=== PATIENT | female | born 1970 | race Caucasian/White ===

== ENCOUNTER 2020-09-18 14:30 | Inpatient (IN) | payer BC ==
[~2020-09-18] VITALS: Ht 172.7 cm; Wt 70.0 kg
[2020-09-18 15:29] LABS: BASOPHILS % (AUTO) 0.3 % (0-1); EOSINOPHILS % (AUTO) 0.1 % (0-6); HEMATOCRIT 38.7 % (35.0-45.0); HEMOGLOBIN 12.9 g/dl (12.0-16.0); LYMPHOCYTES # (AUTO) 0.4 X10'3 (1.1-4.8); LYMPHOCYTES % (AUTO) 3.2 % (21-51); MEAN CORPUSCULAR HEMOGLOBIN 31.1 PG (27.0-31.0); MEAN CORPUSCULAR HGB CONC 33.2 g/dL (33.0-36.5); MEAN CORPUSCULAR VOLUME 93.6 FL (78-98); MEAN PLATELET VOLUME 9.2 FL (7.4-10.4); MONOCYTES # (AUTO) 0.8 X10'3 (0-0.9); MONOCYTES % (AUTO) 6.4 % (2-12); NEUTROPHILS # (AUTO) 10.9 X10'3 (1.8-7.7); PLATELET COUNT 146 X10'3 (140-440); RED BLOOD COUNT 4.13 X10'6 (4.20-5.60); RED CELL DISTRIBUTION WIDTH 13.6 % (11.5-14.5); WHITE BLOOD COUNT 12.1 X10'3 (4.5-11.0)
[2020-09-18 15:40] LABS: ALANINE AMINOTRANSFERASE 22 U/L (12-78); ALBUMIN 4.1 G/DL (3.4-5.0); ALBUMIN/GLOBULIN RATIO 1.1 (1.1-1.5); ALKALINE PHOSPHATASE 36 IU/L (46-116); AMYLASE 19 U/L (25-115); ANION GAP 9 (8-16); ASPARTATE AMINO TRANSFERASE 12 U/L (10-37); BILIRUBIN,TOTAL 1.6 MG/DL (0.1-1.0); BLOOD UREA NITROGEN 13 MG/DL (7-18); BUN/CREATININE RATIO 16.5 (6.6-38.0); CALCIUM 8.9 MG/DL (8.5-10.1); CHLORIDE 101 MMOL/L (99-107); CREATININE 0.79 MG/DL (0.40-0.90); GLUCOSE 96 MG/DL (70-104); LIPASE 53 U/L (73-393); POTASSIUM 3.7 MMOL/L (3.5-5.1); SODIUM 136 MMOL/L (135-145); TOTAL CARBON DIOXIDE 25.8 MMOL/L (24-32); eGFR 78 ML/MIN
[2020-09-18 17:30] LABS: URINE HCG NEGATIVE (NEG)
[2020-09-18 17:39] LABS: CLARITY,URINE SLIGHTLY CLOUDY (Clear); COLOR,URINE YELLOW (Yellow); GLUCOSE, URINE NEGATIVE (Neg); KETONES,URINE >=80 mg/dl (Neg); LEUKOCYTE ESTERASE ,URINE NEGATIVE (Neg); NITRITES, URINE NEGATIVE (Neg); OCCULT BLOOD,URINE SMALL (Neg); PH,URINE 5.5 (4.8-8.0); PROTEIN,URINE NEGATIVE (Neg)
[2020-09-18 17:53] LABS: UA COLLECTION TYPE CLN CATCH MIDSTREAM
[2020-09-18 18:00] LABS: BACTERIA,URINE FEW /HPF (Neg); MUCUS STRANDS MANY /LPF (Neg); RBC,URINE 0-2 /HPF (0-2); SQUAMOUS EPITHELIAL CELL,UR MANY /LPF (FEW); TRANSITIONAL EPI CELLS,URINE FEW /HPF; WBC,URINE 0-4 /HPF (0-4)
[2020-09-18] MEDS ORDERED: piperacillin/tazo 4.5gm/100ml 100 ML IV SCH (18:35)
[2020-09-18] MEDS ORDERED: piperacillin/tazo 4.5gm/100ml 100 ML IV ONE (18:38)
[2020-09-18] MEDS ORDERED: morphine 4 MG/ML inj SYRINge IV ONE (18:40)
[2020-09-18] MEDS ORDERED: dextrose 5%-normal saline 1,000 ML IV ONE (18:40)
[2020-09-18] MEDS ORDERED: ondansetron/PF 4mg/2ml inj IV ONE (18:40)
[2020-09-18] MEDS ORDERED: CITA20TA17 (19:01)
[2020-09-18] MEDS ORDERED: proCHLORperazine 10 MG/2 ml inj IV PRN (19:20)
[2020-09-18] MEDS ORDERED: morphine 2 MG/ML inj. syringe IV PRN (19:20)
[2020-09-18] MEDS ORDERED: morphine 4 MG/ML inj SYRINge IV PRN (19:20)
[2020-09-18] MEDS ORDERED: ondansetron/PF 4mg/2ml inj IV PRN (19:20)
[2020-09-18] MEDS ORDERED: ringers solution, lacted 1,000 ML IV SCH (19:20)
[2020-09-18] MEDS ORDERED: meperidine/PF 25mg/ml syringe IV PRN ×3 (19:20)
[2020-09-18] MEDS ORDERED: BUPIVAcaine/PF 2.5 mg/ml (0.25%) 30ml vial ONE (20:06)
[2020-09-18] MEDS ORDERED: magnesium hydroxide 30ml (MOM) UD suspension PO PRN (20:20)
[2020-09-18] MEDS ORDERED: potassium Cl 40MEQ/1/2NS 520ml 520 ML IV PRN ×2 (20:20)
[2020-09-18] MEDS ORDERED: HYDROcodone/acetaminophen 5mg/325mg tablet PO PRN (20:20)
[2020-09-18] MEDS ORDERED: potassium Cl 20 mEq SR tablet PO PRN ×2 (20:20)
[2020-09-18] MEDS ORDERED: mag hydrox/Alum hydrox/simeth 30ml oral suspension PO PRN (20:20)
[2020-09-18] MEDS: normal saline 1000ml 1,000 ML IV SCH ×2 (20:20→23:40)
[2020-09-18] MEDS ORDERED: magnesium 2GM in 50ml NS 50 ML IV PRN (20:20)
[2020-09-18] MEDS ORDERED: magnesium 4gm in 100ml NS 100 ML IV PRN (20:20)
[2020-09-18] MEDS ORDERED: magnesium Cl slow-release 64mg tablet PO PRN (20:20)
[2020-09-18] MEDS ORDERED: acetaminophen 325mg tablet PO PRN ×2 (20:20)
--- NOTE | 2020-09-18 20:43 | NUR ---
PATIENT TO OR WITH OR PERSONNEL.
[2020-09-18] MEDS ORDERED: temazepam 15mg capsule PO PRN (21:00)
[2020-09-18 21:08] LABS: PARTIAL THROMBOPLASTIN TIME 28 SECONDS (22-32)
--- NOTE | 2020-09-18 21:36 | NUR ---
I have received report from Betsy DONOHUE and had the opportunity to ask questions and assume patient care.
[2020-09-18 22:00] VITALS: BP 106/41
[2020-09-18] MEDS: piperacillin/tazo 3.375gm/50ml 50 ML IV SCH (23:30)
--- NOTE | 2020-09-18 23:30 | NUR ---
called pharmacy about midnight zosyn. pt came to floor with zosyn running and the bag of zosyn just finished. pharmacy said to nonadminister and give next dose ar scheduled time of 0800 on 09/19/20
[2020-09-19] VITALS (19 sets, daily range): BP systolic 92–124; BP diastolic 39–92
[2020-09-19] MEDS: HYDROmorphone inj. 0.5 MG/0.5 ML DISP.SYRIN IV PRN ×2 (04:49→23:16)
[2020-09-19 06:21] LABS: BASOPHILS % (AUTO) 0.1 % (0-1); EOSINOPHILS % (AUTO) 0.1 % (0-6); HEMATOCRIT 32.4 % (35.0-45.0); HEMOGLOBIN 11.2 g/dl (12.0-16.0); LYMPHOCYTES # (AUTO) 0.5 X10'3 (1.1-4.8); LYMPHOCYTES % (AUTO) 4.3 % (21-51); MEAN CORPUSCULAR HEMOGLOBIN 32.1 PG (27.0-31.0); MEAN CORPUSCULAR HGB CONC 34.5 g/dL (33.0-36.5); MEAN CORPUSCULAR VOLUME 93.1 FL (78-98); MEAN PLATELET VOLUME 9.6 FL (7.4-10.4); MONOCYTES # (AUTO) 0.9 X10'3 (0-0.9); MONOCYTES % (AUTO) 7.9 % (2-12); NEUTROPHILS # (AUTO) 10.4 X10'3 (1.8-7.7); NEUTROPHILS % (AUTO) 87.6 % (42-75); PLATELET COUNT 120 X10'3 (140-440); RED BLOOD COUNT 3.48 X10'6 (4.20-5.60); RED CELL DISTRIBUTION WIDTH 13.5 % (11.5-14.5); WHITE BLOOD COUNT 11.9 X10'3 (4.5-11.0)
[2020-09-19 06:32] LABS: PARTIAL THROMBOPLASTIN TIME 31 SECONDS (22-32)
[2020-09-19 06:38] LABS: ALANINE AMINOTRANSFERASE 17 U/L (12-78); ALBUMIN/GLOBULIN RATIO 0.9 (1.1-1.5); ALKALINE PHOSPHATASE 32 IU/L (46-116); ANION GAP 10 (8-16); ASPARTATE AMINO TRANSFERASE 9 U/L (10-37); BILIRUBIN,TOTAL 1.6 MG/DL (0.1-1.0); BLOOD UREA NITROGEN 12 MG/DL (7-18); BUN/CREATININE RATIO 15.4 (6.6-38.0); CHLORIDE 104 MMOL/L (99-107); CREATININE 0.78 MG/DL (0.40-0.90); GLUCOSE 110 MG/DL (70-104); MAGNESIUM 1.8 MG/DL (1.5-2.4); POTASSIUM 3.8 MMOL/L (3.5-5.1); SODIUM 136 MMOL/L (135-145); TOTAL CARBON DIOXIDE 22.2 MMOL/L (24-32); TOTAL PROTEIN 6.4 G/DL (6.4-8.2); eGFR 79 ML/MIN
[2020-09-19] MEDS: K and/or MAG REPLACEMENT MC SCH ×2 (07:20→19:37)
[2020-09-19] MEDS: piperacillin/tazo 3.375gm/50ml 50 ML IV SCH ×2 (07:25→16:32)
[2020-09-19] MEDS: pantoprazole 40 MG vial IV SCH (07:25)
[2020-09-19] MEDS: citalopram 20mg tablet PO SCH (07:33)
[2020-09-19] MEDS ORDERED: ringers solution, lacted 1,000 ML IV ONE (08:20)
--- NOTE | 2020-09-19 09:00 | NUR ---
Problems reprioritized. Patient report given, questions answered & plan of care reviewed with Luther DONOHUE pt going to surgery.
[2020-09-19] MEDS ORDERED: BUPIVAcaine/PF 2.5 mg/ml (0.25%) 30ml vial ONE (09:29)
[2020-09-19] MEDS ORDERED: FLU VACC QS2020-21(6MOS UP)/PF 60 MCG/0.5 ML SYRINGE IMVAC ONE (10:00)
[2020-09-19] MEDS ORDERED: fentaNYL /PF 50mcg/ml 5ml ampule ONE (10:02)
[2020-09-19] MEDS ORDERED: sevoflurane 250ml liquid IH ONE (10:06)
--- NOTE | 2020-09-19 11:08 | NUR ---
Received from OR via , accompanied by Anesthesiologist DR THOMAS and report given by Anesthesiolgist. AWAKENS TO VOICE. VITALS STABLE. DRESSINGS DI. SAPNA PAIN. ABD SOFT
[2020-09-19] MEDS ORDERED: meperidine/PF 25mg/ml syringe IV PRN ×2 (11:30)
[2020-09-19] MEDS ORDERED: HYDROmorphone/PF 0.2 MG/ML SYRINGE IV PRN ×2 (11:30)
[2020-09-19] MEDS ORDERED: ondansetron/PF 4mg/2ml inj IV PRN (11:30)
[2020-09-19] MEDS ORDERED: morphine 2 MG/ML inj. syringe IV PRN (11:30)
--- NOTE | 2020-09-19 11:30 | NUR ---
Patient in room [facility]. I have received report from Radha Luevano RN, and had the opportunity to ask questions and assume patient care.
[2020-09-19] MEDS ORDERED: meperidine/PF 25mg/ml syringe ONE (11:34)
--- NOTE | 2020-09-19 11:58 | NUR ---
Report called to receiving nurse. Transferred via BED Belongings . Special Issues communicated to receiving nurse. AWAKE AND ORIENTED. VITALS STABLE. DRESSINGS DI. STATES PAIN IMPROVING. TO SURGICAL [facility] 340B AT THIS TIME.
[2020-09-19] MEDS ORDERED: glycopyrrolate 0.2mg/ml inj ONE (12:18)
[2020-09-19] MEDS ORDERED: acetaminophen 1,000mg/100ml IV 100 ML IV ONE (12:18)
[2020-09-19] MEDS ORDERED: ondansetron/PF 4mg/2ml inj ONE (12:18)
[2020-09-19] MEDS ORDERED: propofol inj 20 ML IV ONE (12:18)
[2020-09-19] MEDS ORDERED: dexamethasone sod phosphate 4mg/ml inj. ONE (12:18)
[2020-09-19] MEDS ORDERED: neostigmine methylsulfate 1 MG/ML 10ml vial ONE (12:18)
[2020-09-19] MEDS ORDERED: rocuronium 10mg/ml inj IV ONE (12:18)
[2020-09-19] MEDS ORDERED: LIDOcaine 2% (20mg/ml) 5ml vial ONE (12:18)
[2020-09-19] MEDS ORDERED: ibuprofen tablet 400 MG TABLET PO PRN (16:45)
[2020-09-19] MEDS ORDERED: acetaminophen 325mg tablet PO PRN (16:45)
[2020-09-19] MEDS: normal saline 1000ml 1,000 ML IV SCH (16:49)
--- NOTE | 2020-09-19 18:15 | NUR ---
Patient report given, questions answered & plan of care reviewed with Kerri Harris RN .
--- NOTE | 2020-09-19 18:30 | NUR ---
Patient in room [facility]. I have received report from CINTHIA DONOHUE and had the opportunity to ask questions and assume patient care.
[2020-09-19] MEDS: HYDROcodone/acetaminophen 10/325mg tab PO PRN (19:26)
[2020-09-19] MEDS: lactobacillus rhamnosus 10,000 MMU CELLS/CAPSULE PO SCH (19:26)
[2020-09-19] MEDS: ondansetron/PF 4mg/2ml inj IV PRN (23:19)
[2020-09-20] VITALS: BP 108/51
[2020-09-20] MEDS: piperacillin/tazo 3.375gm/50ml 50 ML IV SCH ×4 (00:28→23:42)
[2020-09-20] MEDS: HYDROcodone/acetaminophen 10/325mg tab PO PRN ×3 (00:38→14:42)
[2020-09-20] MEDS: normal saline 1000ml 1,000 ML IV SCH ×2 (03:17→13:04)
--- NOTE | 2020-09-20 06:10 | NUR ---
Patient in room [facility]. I have received report from Kerri Manning RN, and had the opportunity to ask questions and assume patient care.
--- NOTE | 2020-09-20 06:11 | NUR ---
Problems reprioritized. Patient report given, questions answered & plan of care reviewed with CINTHIA DONOHUE.
[2020-09-20 06:18] LABS: BASOPHILS % (AUTO) 0.3 % (0-1); EOSINOPHILS % (AUTO) 0 % (0-6); HEMATOCRIT 29.1 % (35.0-45.0); LYMPHOCYTES # (AUTO) 0.5 X10'3 (1.1-4.8); LYMPHOCYTES % (AUTO) 4.8 % (21-51); MEAN CORPUSCULAR HEMOGLOBIN 31.9 PG (27.0-31.0); MEAN CORPUSCULAR HGB CONC 34.3 g/dL (33.0-36.5); MEAN CORPUSCULAR VOLUME 92.9 FL (78-98); MEAN PLATELET VOLUME 9.7 FL (7.4-10.4); MONOCYTES # (AUTO) 0.5 X10'3 (0-0.9); MONOCYTES % (AUTO) 5.4 % (2-12); NEUTROPHILS # (AUTO) 8.6 X10'3 (1.8-7.7); NEUTROPHILS % (AUTO) 89.5 % (42-75); PLATELET COUNT 106 X10'3 (140-440); RED BLOOD COUNT 3.14 X10'6 (4.20-5.60); RED CELL DISTRIBUTION WIDTH 13.5 % (11.5-14.5); WHITE BLOOD COUNT 9.6 X10'3 (4.5-11.0)
[2020-09-20 06:20] LABS: ALANINE AMINOTRANSFERASE 16 U/L (12-78); ALBUMIN 2.5 G/DL (3.4-5.0); ALBUMIN/GLOBULIN RATIO 0.7 (1.1-1.5); ALKALINE PHOSPHATASE 36 IU/L (46-116); ANION GAP 7 (8-16); ASPARTATE AMINO TRANSFERASE 11 U/L (10-37); BILIRUBIN,TOTAL 1.1 MG/DL (0.1-1.0); BLOOD UREA NITROGEN 6 MG/DL (7-18); BUN/CREATININE RATIO 7.8 (6.6-38.0); CHLORIDE 108 MMOL/L (99-107); CREATININE 0.77 MG/DL (0.40-0.90); GLUCOSE 118 MG/DL (70-104); MAGNESIUM 1.8 MG/DL (1.5-2.4); POTASSIUM 3.8 MMOL/L (3.5-5.1); SODIUM 139 MMOL/L (135-145); TOTAL CARBON DIOXIDE 24.4 MMOL/L (24-32); TOTAL PROTEIN 5.9 G/DL (6.4-8.2); eGFR 80 ML/MIN
[2020-09-20] MEDS: pantoprazole 40 MG vial IV SCH (07:49)
[2020-09-20] MEDS: citalopram 20mg tablet PO SCH (07:55)
[2020-09-20] MEDS: lactobacillus rhamnosus 10,000 MMU CELLS/CAPSULE PO SCH ×2 (07:55→20:20)
[2020-09-20 08:00] VITALS: BP 112/46
[2020-09-20] MEDS: K and/or MAG REPLACEMENT MC SCH ×2 (08:00→20:00)
[2020-09-20] MEDS ORDERED: FLU VACC QS2020-21(6MOS UP)/PF 60 MCG/0.5 ML SYRINGE IMVAC ONE (10:00)
[2020-09-20 11:00] VITALS: BP 102/51
--- NOTE | 2020-09-20 17:30 | NUR ---
Pt c/o nausea and feeling bloated. Instructed pt to keep NPO until reassessed in am. NPO sign placed at bedside. Enc pt to ambulate halls frequently. Antiemetic administered.
[2020-09-20] MEDS: ondansetron/PF 4mg/2ml inj IV PRN (18:08)
--- NOTE | 2020-09-20 18:15 | NUR ---
Patient report given, questions answered & plan of care reviewed with CHARANJIT Majano.
--- NOTE | 2020-09-20 18:30 | NUR ---
Patient in room [facility]. I have received report from CINTHIA DONOHUE and had the opportunity to ask questions and assume patient care.
[2020-09-20 20:00] VITALS: BP 104/56
[2020-09-20] MEDS: HYDROmorphone inj. 0.5 MG/0.5 ML DISP.SYRIN IV PRN (20:18)
[2020-09-21] VITALS: BP 105/57
[2020-09-21] MEDS: normal saline 1000ml 1,000 ML IV SCH ×4 (01:27→23:27)
[2020-09-21] MEDS: ondansetron/PF 4mg/2ml inj IV PRN ×2 (01:27→16:12)
[2020-09-21] MEDS: HYDROmorphone inj. 0.5 MG/0.5 ML DISP.SYRIN IV PRN (01:29)
--- NOTE | 2020-09-21 06:31 | NUR ---
Problems reprioritized. Patient report given, questions answered & plan of care reviewed with ARPIT DONOHUE.
[2020-09-21 07:01] LABS: BASOPHILS % (AUTO) 0.2 % (0-1); EOSINOPHILS % (AUTO) 0.5 % (0-6); HEMATOCRIT 36.1 % (35.0-45.0); HEMOGLOBIN 12.1 g/dl (12.0-16.0); LYMPHOCYTES # (AUTO) 0.6 X10'3 (1.1-4.8); LYMPHOCYTES % (AUTO) 7.4 % (21-51); MEAN CORPUSCULAR HEMOGLOBIN 31.4 PG (27.0-31.0); MEAN CORPUSCULAR HGB CONC 33.6 g/dL (33.0-36.5); MEAN CORPUSCULAR VOLUME 93.4 FL (78-98); MEAN PLATELET VOLUME 9.3 FL (7.4-10.4); MONOCYTES # (AUTO) 0.5 X10'3 (0-0.9); MONOCYTES % (AUTO) 6.4 % (2-12); NEUTROPHILS # (AUTO) 7.3 X10'3 (1.8-7.7); NEUTROPHILS % (AUTO) 85.5 % (42-75); PLATELET COUNT 147 X10'3 (140-440); RED BLOOD COUNT 3.87 X10'6 (4.20-5.60); RED CELL DISTRIBUTION WIDTH 13.5 % (11.5-14.5); WHITE BLOOD COUNT 8.6 X10'3 (4.5-11.0)
[2020-09-21 07:25] VITALS: BP 106/55
[2020-09-21 07:39] LABS: ALANINE AMINOTRANSFERASE 12 U/L (12-78); ALBUMIN 2.3 G/DL (3.4-5.0); ALBUMIN/GLOBULIN RATIO 0.6 (1.1-1.5); ALKALINE PHOSPHATASE 39 IU/L (46-116); ANION GAP 9 (8-16); ASPARTATE AMINO TRANSFERASE 6 U/L (10-37); BILIRUBIN,TOTAL 0.8 MG/DL (0.1-1.0); BLOOD UREA NITROGEN 8 MG/DL (7-18); BUN/CREATININE RATIO 10.3 (6.6-38.0); CALCIUM 7.7 MG/DL (8.5-10.1); CHLORIDE 106 MMOL/L (99-107); CREATININE 0.78 MG/DL (0.40-0.90); GLUCOSE 99 MG/DL (70-104); MAGNESIUM 1.8 MG/DL (1.5-2.4); POTASSIUM 3.6 MMOL/L (3.5-5.1); SODIUM 139 MMOL/L (135-145); TOTAL CARBON DIOXIDE 24.3 MMOL/L (24-32); TOTAL PROTEIN 5.9 G/DL (6.4-8.2); eGFR 79 ML/MIN
[2020-09-21] MEDS: K and/or MAG REPLACEMENT MC SCH ×2 (08:00→19:46)
[2020-09-21] MEDS: citalopram 20mg tablet PO SCH (08:36)
[2020-09-21] MEDS: lactobacillus rhamnosus 10,000 MMU CELLS/CAPSULE PO SCH ×2 (08:36→20:32)
[2020-09-21] MEDS: piperacillin/tazo 3.375gm/50ml 50 ML IV SCH ×3 (08:36→23:30)
[2020-09-21] MEDS: pantoprazole 40 MG vial IV SCH (08:36)
[2020-09-21] MEDS ORDERED: AMOX-422 PO (10:51)
[2020-09-21 11:41] VITALS: BP 110/46
--- NOTE | 2020-09-21 18:19 | NUR ---
Problems reprioritized. Patient report given, questions answered & plan of care reviewed with CHARANJIT Majano.
--- NOTE | 2020-09-21 18:30 | NUR ---
Patient in room [facility]. I have received report from ARPIT DONOHUE and had the opportunity to ask questions and assume patient care.
[2020-09-21 20:00] VITALS: BP 108/68
[2020-09-21] MEDS: HYDROcodone/acetaminophen 10/325mg tab PO PRN (20:33)
[2020-09-22] VITALS: BP 110/63
[2020-09-22 06:23] LABS: BASOPHILS % (AUTO) 0.3 % (0-1); EOSINOPHILS # (AUTO) 0.1 X10'3 (0-0.9); EOSINOPHILS % (AUTO) 1.1 % (0-6); HEMATOCRIT 32.2 % (35.0-45.0); HEMOGLOBIN 11.1 g/dl (12.0-16.0); LYMPHOCYTES # (AUTO) 0.4 X10'3 (1.1-4.8); LYMPHOCYTES % (AUTO) 5.4 % (21-51); MEAN CORPUSCULAR HEMOGLOBIN 31.6 PG (27.0-31.0); MEAN CORPUSCULAR HGB CONC 34.5 g/dL (33.0-36.5); MEAN CORPUSCULAR VOLUME 91.7 FL (78-98); MEAN PLATELET VOLUME 8.9 FL (7.4-10.4); MONOCYTES # (AUTO) 0.6 X10'3 (0-0.9); MONOCYTES % (AUTO) 7.6 % (2-12); NEUTROPHILS # (AUTO) 7.1 X10'3 (1.8-7.7); NEUTROPHILS % (AUTO) 85.6 % (42-75); PLATELET COUNT 162 X10'3 (140-440); RED BLOOD COUNT 3.51 X10'6 (4.20-5.60); RED CELL DISTRIBUTION WIDTH 13.6 % (11.5-14.5); WHITE BLOOD COUNT 8.3 X10'3 (4.5-11.0)
--- NOTE | 2020-09-22 06:24 | NUR ---
Problems reprioritized. Patient report given, questions answered & plan of care reviewed with MARISA DONOHUE.
[2020-09-22 06:42] LABS: ALANINE AMINOTRANSFERASE 11 U/L (12-78); ALBUMIN 2.3 G/DL (3.4-5.0); ALBUMIN/GLOBULIN RATIO 0.7 (1.1-1.5); ALKALINE PHOSPHATASE 44 IU/L (46-116); ANION GAP 10 (8-16); ASPARTATE AMINO TRANSFERASE 9 U/L (10-37); BILIRUBIN,TOTAL 0.9 MG/DL (0.1-1.0); BLOOD UREA NITROGEN 9 MG/DL (7-18); CHLORIDE 105 MMOL/L (99-107); CREATININE 0.75 MG/DL (0.40-0.90); GLUCOSE 88 MG/DL (70-104); MAGNESIUM 1.7 MG/DL (1.5-2.4); POTASSIUM 3.4 MMOL/L (3.5-5.1); SODIUM 139 MMOL/L (135-145); TOTAL CARBON DIOXIDE 23.7 MMOL/L (24-32); TOTAL PROTEIN 5.6 G/DL (6.4-8.2); eGFR 82 ML/MIN
--- NOTE | 2020-09-22 06:45 | NUR ---
Patient in room [facility]. I have received report from DEBBIE LEWIS RN and had the opportunity to ask questions and assume patient care.
[2020-09-22 07:53] VITALS: BP 120/64
[2020-09-22] MEDS: K and/or MAG REPLACEMENT MC SCH (08:00)
[2020-09-22] MEDS: citalopram 20mg tablet PO SCH (08:26)
[2020-09-22] MEDS: lactobacillus rhamnosus 10,000 MMU CELLS/CAPSULE PO SCH (08:27)
[2020-09-22] MEDS: pantoprazole 40 MG vial IV SCH (08:33)
[2020-09-22] MEDS: piperacillin/tazo 3.375gm/50ml 50 ML IV SCH (08:33)
[2020-09-22 09:42] LABS: C DIFF ANTIGEN NEGATIVE (NEGATIVE); C DIFF SPECIMEN=DIARRHEA? ACCEPTABLE; C DIFFICILE TOXINS A&B NEGATIVE (Neg)
--- NOTE | 2020-09-22 11:16 | NUR ---
Dr Puente rounded and discussed w/ pt discharge plan for today, stated pt may eat regular diet if tolerates. Pt requested work release note for her employer, stated he will decide when to release her after she follows up with him in the office. CHARANJIT Barone notified.
[2020-09-22 11:31] VITALS: BP 152/112
[2020-09-22 11:35] VITALS: BP 119/66
--- NOTE | 2020-09-22 13:28 | NUR ---
PATIENT STABLE AND APPROPRIATE FOR DISCHARGE, IV TAKEN OUT, EDUCATION GIVEN, NEW MEDS E-SCRIPTED TO PREFERRED PHARMACY, NOTE FOR WORK GIVEN, ALL BELONGINGS SENT WITH PATIENT, PATIENT TAKEN TO LOBBY IN WHEELCHAIR TO AN AWAITING CAR WHERE FAMILY MEMBER WILL TAKE PATIENT HOME.
== END 2020-09-22 13:13 | disposition home or self-care (01) | DRG 340 ==
LOC: ER 14:30 → ED HOLD 20:17 → SUR 3N 21:26
PROVIDERS: ADMIT Family Medicine; ATTEND Family Medicine
PROC: 0DTJ4ZZ Resection of Appendix, Percutaneous Endoscopic Approach (ICD-10-PCS; principal; 2020-09-19 10:06)
PROC: 3E02340 Introduction of Influenza Vaccine into Muscle, Percutaneous Approach (ICD-10-PCS; 2020-09-20)
DX: K35.32 Acute appendicitis with perforation, localized peritonitis, and gangrene, without abscess (principal); K22.70 Barrett's esophagus without dysplasia; K56.41 Fecal impaction; Z90.711 Acquired absence of uterus with remaining cervical stump; Z20.822 Contact with and (suspected) exposure to COVID-19; Z23 Encounter for immunization
CPT/HCPCS: 96374; 96375; 99285; Z7506; Z7508; 36415; 71045; 74176; 80053; 81001; 81025; 82150; 82948; 83690; 83735; 85025; 85610; 85730; 87081; 87324; 87449; 87635; 93005; A4215; A4314; A4618; A6250; C9113; C9803; G0378; J0131; J1100; J1170; J2001; J2175; J2270; J2405; J2543; J2704; J2710; J3010; J3490; J7030; J7042; Q2039